=== PATIENT | female | born 1965 | race Caucasian/White ===

== ENCOUNTER 2022-06-14 07:13 | Inpatient (IN) | payer SELFPAY ==
[~2022-06-14] VITALS: Ht 160 cm; Wt 68.0 kg
[2022-06-14] MEDS ORDERED: SODIUM CHLORIDE 0.9% 1,000 ML IV ONE (07:30)
[2022-06-14 08:39] LABS: BASOPHILS % 0.4 % (0.0-2.0); EOSINOPHILS % 1.4 % (0.0-5.0); HEMOGLOBIN. 13.6 g/dL (12.0-16.0); LYMPHOCYTES % 18.6 % (20.0-50.0); MEAN CORPUSCULAR HEMOGLOBIN 28.8 pg (28.0-32.0); MEAN PLATELET VOLUME 8.3 fl (7.4-10.4); MONOCYTES % 6.9 % (2.0-8.0); NEUTROPHILS % 72.7 % (40.0-76.0); PLATELET 72 x1000/uL (130-400); RED BLOOD CELL COUNT 4.71 mill/uL (4.2-5.4); RED CELL DISTRIBUTION WIDTH 16.8 % (11.6-14.6)
[2022-06-14 08:43] LABS: CHLORIDE 112 mEq/L (98-107)
[2022-06-14 08:45] LABS: INR 1.2
[2022-06-14] MEDS ORDERED: ASPIRIN 325MG EC TABLET PO ONE (08:45)
[2022-06-14 08:51] LABS: CREATINE KINASE 266 IU/L (26-192); ETHANOL BLOOD < 10 mg/dL
[2022-06-14] MEDS ORDERED: IOHEXOL-350 100 ML BOTTLE ONE (09:03)
[2022-06-14] MEDS ORDERED: ASPIRIN 325MG EC TABLET PO NR (09:30)
[2022-06-14 10:26] LABS: CLARITY URINE CLOUDY (CLEAR); COLOR URINE YELLOW (YELLOW); KETONES URINE NEGATIVE (NEGATIVE); LEUKOCYTE ESTERASE URINE 1+ (NEGATIVE); NITRITE URINE NEGATIVE (NEGATIVE); OCCULT BLOOD URINE TRACE (NEGATIVE); PH URINE 7.5 (4.5-8.0); PROTEIN URINE 3+ (NEGATIVE)
[2022-06-14 10:36] LABS: *AMPHETAMINES SCREEN URINE NEGATIVE (NEGATIVE); *BARBITURATES SCREEN URINE NEGATIVE (NEGATIVE); *BENZODIAZEPINES SCREEN URINE NEGATIVE (NEGATIVE); *COCAINE SCREEN URINE NEGATIVE (NEGATIVE); CANNABINOID URINE SCREEN NEGATIVE (NEGATIVE); METHADONE URINE SCREEN NEGATIVE (NEGATIVE); OPIATES URINE SCREEN NEGATIVE (NEGATIVE); PHENCYCLIDINE URINE SCREEN NEGATIVE (NEGATIVE)
[2022-06-14] MEDS ORDERED: MAGNESIUM/ALUMINUM HYDROXIDE/SIMETHICONE 30ML UDC PO PRN (12:30)
[2022-06-14] MEDS ORDERED: IPRATROPIUM/ALBUTEROL 0.5-3(2.5)MG/3ML NEB HHN PRN (12:30)
[2022-06-14] MEDS ORDERED: GUAIFENESIN 200MG/10ML SUGAR FREE UDC PO PRN (12:30)
[2022-06-14] MEDS ORDERED: ENOXAPARIN 40MG/0.4ML SYR SUBCUT SCH (12:30)
[2022-06-14] MEDS ORDERED: DOCUSATE SODIUM 100MG CAPSULE PO PRN (12:30)
[2022-06-14] MEDS ORDERED: ONDANSETRON HCL 4MG/2ML INJ IV PRN (12:30)
[2022-06-14] MEDS ORDERED: LABETALOL 5MG/ML SYR 20 MG/4 ML SYRINGE IV NR (12:30)
[2022-06-14] MEDS ORDERED: ACETAMINOPHEN 325MG TABLET PO PRN ×2 (12:30)
[2022-06-14] MEDS ORDERED: DEXTROSE 50% WATER 50ML SYRINGE IV PRN (12:30)
[2022-06-14] MEDS ORDERED: HYDROCODONE/ACETAMINOPHEN 5/325MG TABLET PO PRN (12:30)
[2022-06-14] MEDS ORDERED: CLONIDINE 0.1MG TABLET PO PRN (12:30)
[2022-06-14] MEDS ORDERED: NALOXONE HCL 0.4MG/ML VIAL IV PRN (12:45)
[2022-06-14] MEDS: BLOOD SUGAR DIAGNOSTIC STRIP TEST SCH ×3 (13:00→21:00)
[2022-06-14] MEDS: INSULIN LISPRO 100 UNITS/ML SUBCUT SCH ×3 (13:20→21:00)
[2022-06-14 15:44] LABS: CREATINE KINASE MB FRACTION 2.1 ng/mL (0.5-3.6)
[2022-06-14 21:25] VITALS: BP 153/57
[2022-06-14] MEDS: ATORVASTATIN CALCIUM 40MG TABLET PO SCH (22:56)
[2022-06-14 23:34] LABS: CREATINE KINASE MB FRACTION 1.6 ng/mL (0.5-3.6)
[2022-06-14] MEDS ORDERED: IPRATROPIUM BROMIDE (0.02%) 0.5MG/2.5ML NEB HHN PRN (23:45)
[2022-06-14] MEDS ORDERED: ALBUTEROL (0.083%) 2.5MG/3ML NEB HHN PRN (23:45)
[2022-06-15 06:20] LABS: BASOPHILS % 0.6 % (0.0-2.0); EOSINOPHILS % 3.9 % (0.0-5.0); HEMATOCRIT. 33.4 % (36.0-48.0); HEMOGLOBIN. 11.4 g/dL (12.0-16.0); LYMPHOCYTES % 37.9 % (20.0-50.0); MEAN CORPUSCULAR HEMOGLOBIN 29.4 pg (28.0-32.0); MEAN CORPUSCULAR VOLUME 85.6 fL (81.0-99.0); MEAN PLATELET VOLUME 8.2 fl (7.4-10.4); MONOCYTES % 10.4 % (2.0-8.0); NEUTROPHILS % 47.2 % (40.0-76.0); PLATELET 71 x1000/uL (130-400); RED CELL DISTRIBUTION WIDTH 15.9 % (11.6-14.6)
[2022-06-15 08:00] VITALS: BP 140/47
[2022-06-15] MEDS: PANTOPRAZOLE SODIUM 40 MG/VIAL IV SCH (08:41)
[2022-06-15] MEDS: CLOPIDOGREL 75MG TABLET PO SCH (08:41)
[2022-06-15] MEDS: ASPIRIN 81MG EC TABLET PO SCH (08:41)
[2022-06-15 09:33] LABS: CHLORIDE 115 mEq/L (98-107)
[2022-06-15 09:52] LABS: HDL CHOLESTEROL 63 mg/dL (40-59); LDL CHOLESTEROL 73 mg/dL (5-100); T4 FREE 0.88 ng/dL (0.76-1.46)
[2022-06-15] MEDS ORDERED: PNEUMOCOCCAL 23-VAL P-SAC VAC 0.5 ML IM ONE (11:00)
[2022-06-15] MEDS: BLOOD SUGAR DIAGNOSTIC STRIP TEST SCH ×3 (11:50→20:43)
[2022-06-15] MEDS: INSULIN LISPRO 100 UNITS/ML SUBCUT SCH ×3 (11:56→20:43)
[2022-06-15 12:00] VITALS: BP 160/55
[2022-06-15 16:00] VITALS: BP 134/57
[2022-06-15] MEDS ORDERED: INSULIN LISPRO 100 UNITS/ML SUBCUT NR (16:45)
[2022-06-15 20:00] VITALS: BP 140/48
[2022-06-15] MEDS: ATORVASTATIN CALCIUM 40MG TABLET PO SCH (20:42)
[2022-06-16] VITALS: BP 151/55
[2022-06-16 04:00] VITALS: BP 138/53
[2022-06-16] MEDS: BLOOD SUGAR DIAGNOSTIC STRIP TEST SCH ×3 (05:44→18:17)
[2022-06-16] MEDS: INSULIN LISPRO 100 UNITS/ML SUBCUT SCH ×3 (05:44→18:16)
[2022-06-16 07:00] LABS: BASOPHILS % 0.3 % (0.0-2.0); EOSINOPHILS % 2.1 % (0.0-5.0); HEMATOCRIT. 32.1 % (36.0-48.0); HEMOGLOBIN. 10.8 g/dL (12.0-16.0); LYMPHOCYTES % 25.5 % (20.0-50.0); MEAN CORPUSCULAR HEMOGLOBIN 28.9 pg (28.0-32.0); MEAN CORPUSCULAR VOLUME 85.7 fL (81.0-99.0); MONOCYTES % 9.7 % (2.0-8.0); NEUTROPHILS % 62.4 % (40.0-76.0); PLATELET 61 x1000/uL (130-400); RED BLOOD CELL COUNT 3.75 mill/uL (4.2-5.4)
[2022-06-16 08:00] VITALS: BP 152/56
[2022-06-16] MEDS: PANTOPRAZOLE SODIUM 40 MG/VIAL IV SCH (09:11)
[2022-06-16] MEDS: ASPIRIN 81MG EC TABLET PO SCH (09:12)
[2022-06-16] MEDS: CLOPIDOGREL 75MG TABLET PO SCH (09:12)
[2022-06-16 10:03] LABS: CHLORIDE 114 mEq/L (98-107)
[2022-06-16 12:00] VITALS: BP 164/76
[2022-06-16] MEDS ORDERED: LIP40 PO (14:31)
[2022-06-16] MEDS ORDERED: CLOP-31 PO (14:31)
[2022-06-16] MEDS ORDERED: ASPI-1406 PO (14:31)
[2022-06-16] MEDS ORDERED: METF-414 PO (14:44)
[2022-06-16] MEDS ORDERED: AMLO5TAB88 PO (14:44)
[2022-06-16] MEDS ORDERED: AMLODIPINE 5MG TABLET PO SCH (14:45)
[2022-06-16 16:00] VITALS: BP 147/52
[2022-06-16] MEDS ORDERED: METFORMIN HCL 500MG TABLET PO SCH (17:10)
[2022-06-16 17:51] VITALS: BP 149/52
== END 2022-06-16 19:00 | disposition home or self-care (01) | DRG 47 ==
LOC: ER 07:13 → EDBEDREQSVC 07:30 → EDBEDREQ 11:25 → SUPCPDRO 12:06 → EDBD 22:32 → 7EST 22:32
PROVIDERS: ADMIT Internal Medicine; ATTEND Internal Medicine
PROC: 4A00X4Z Measurement of Central Nervous Electrical Activity, External Approach (ICD-10-PCS; principal; 2022-06-16)
DX: G45.9 Transient cerebral ischemic attack, unspecified (principal); D69.6 Thrombocytopenia, unspecified; E46 Unspecified protein-calorie malnutrition; E83.51 Hypocalcemia; D72.819 Decreased white blood cell count, unspecified; E11.65 Type 2 diabetes mellitus with hyperglycemia; I10 Essential (primary) hypertension; R74.01 Elevation of levels of liver transaminase levels; R79.89 Other specified abnormal findings of blood chemistry; Z79.02 Long term (current) use of antithrombotics/antiplatelets; Z79.82 Long term (current) use of aspirin; Z68.26 Body mass index [BMI] 26.0-26.9, adult
CPT/HCPCS: 36415; 70496; 70498; 70551; 71045; 80053; 80061; 80076; 80305; 80320; 81003; 82550; 82553; 82962; 83036; 84439; 84443; 84484; 85025; 86850; 86900; 87426; 90732; 93005; 93306; 95816; 97162; 99291; C9113; C9803; J1815; J3490; J7030; Q9967; G0480

== ENCOUNTER 2023-01-28 22:39 | Emergency (ER) | payer MEDICAID ==
[~2023-01-28] VITALS: Ht 162.6 cm; Wt 64.0 kg
[~2023-01-28 22:39] MED LIST: AMLO5TAB88 PO; ASPI-1406 PO; CLOP-31 PO; LIP40 PO; METF-414 PO
[2023-01-28 22:40] VITALS: O2SAT 97
[2023-01-28 23:23] LABS: BASOPHILS % 0.2 % (0.0-2.0); EOSINOPHILS % 1.9 % (0.0-5.0); HEMATOCRIT. 40.9 % (36.0-48.0); HEMOGLOBIN. 13.9 g/dL (12.0-16.0); LYMPHOCYTES % 10.8 % (20.0-50.0); MEAN CORPUSCULAR HEMOGLOBIN 29.3 pg (28.0-32.0); MEAN CORPUSCULAR HGB CONC 34.1 g/dL (31.0-37.0); MEAN CORPUSCULAR VOLUME 85.9 fL (81.0-99.0); MEAN PLATELET VOLUME 8.5 fl (7.4-10.4); MONOCYTES % 3.4 % (2.0-8.0); NEUTROPHILS % 83.7 % (40.0-76.0); PLATELET 122 x1000/uL (130-400); RED BLOOD CELL COUNT 4.76 mill/uL (4.2-5.4); RED CELL DISTRIBUTION WIDTH 14.9 % (11.6-14.6); WHITE BLOOD COUNT 8.6 x1000/uL (4.5-11.0)
[2023-01-28 23:32] LABS: CHLORIDE 109 mEq/L (98-107); INDEX HEMOLYSI 1 (1-3); INDEX ICTERIC 2 (1-4); INDEX LIPEMIC 1 (1-3); POTASSIUM 4.6 mEq/L (3.5-5.1); SODIUM 137 mEq/L (136-145)
[2023-01-28 23:38] LABS: ALANINE AMINOTRANSFERASE 34 IU/L (13-61); ALBUMIN 2.5 g/dL (3.4-5.0); ASPARTATE AMINOTRANSFERASE 31 IU/L (15-37); BILIRUBIN TOTAL 2.3 mg/dL (0.1-1.0); CALCIUM 8.4 mg/dL (8.5-10.1); CARBON DIOXIDE 20 mEq/L (21-32); CREATININE 1.4 mg/dL (0.6-1.3); GLUCOSE 265 mg/dL (70-105); PROTEIN TOTAL 7.9 g/dL (6.0-8.3); UREA NITROGEN BLOOD 23 mg/dL (7-21)
[2023-01-29] MEDS ORDERED: SODIUM CHLORIDE 0.9% 1,000 ML IV ONE (01:15)
[2023-01-29] MEDS ORDERED: ONDANSETRON HCL 4MG/2ML INJ IV PRN (05:15)
[2023-01-29] MEDS ORDERED: MAGNESIUM/ALUMINUM HYDROXIDE/SIMETHICONE 30ML UDC PO PRN (05:15)
[2023-01-29] MEDS ORDERED: DOCUSATE SODIUM 100MG CAPSULE PO PRN (05:15)
[2023-01-29] MEDS ORDERED: CLONIDINE 0.1MG TABLET PO PRN (05:15)
[2023-01-29] MEDS ORDERED: IPRATROPIUM/ALBUTEROL 0.5-3(2.5)MG/3ML NEB HHN PRN (05:15)
[2023-01-29] MEDS ORDERED: DEXTROSE 50% WATER 50ML SYRINGE IV PRN (05:15)
[2023-01-29] MEDS ORDERED: ACETAMINOPHEN 325MG TABLET PO PRN ×2 (05:15)
[2023-01-29] MEDS ORDERED: SODIUM CHLORIDE 0.9% 1,000 ML IV SCH (05:15)
[2023-01-29] MEDS ORDERED: GUAIFENESIN 200MG/10ML SUGAR FREE UDC PO PRN (05:15)
[2023-01-29] MEDS ORDERED: AMLODIPINE 10MG TABLET PO SCH (05:45)
[2023-01-29] MEDS ORDERED: LACTATED RINGERS 1,000 ML IV SCH (06:00)
[2023-01-29] MEDS ORDERED: NITR-87 MT (06:04)
[2023-01-29 06:10] LABS: CLARITY URINE TURBID (CLEAR); COLOR URINE YELLOW (YELLOW); GLUCOSE URINE NEGATIVE (NEGATIVE); KETONES URINE NEGATIVE (NEGATIVE); LEUKOCYTE ESTERASE URINE 3+ (NEGATIVE); NITRITE URINE NEGATIVE (NEGATIVE); OCCULT BLOOD URINE 2+ (NEGATIVE); PROTEIN URINE 2+ (NEGATIVE); SPECIFIC GRAVITY URINE 1.016 (1.005-1.030)
[2023-01-29 06:23] LABS: *AMPHETAMINES SCREEN URINE NEGATIVE (NEGATIVE); *BARBITURATES SCREEN URINE NEGATIVE (NEGATIVE); *BENZODIAZEPINES SCREEN URINE NEGATIVE (NEGATIVE); *COCAINE SCREEN URINE NEGATIVE (NEGATIVE); CANNABINOID URINE SCREEN NEGATIVE (NEGATIVE); ECSTASY MDMA SCREEN URINE NEGATIVE (NEGATIVE); OPIATES URINE SCREEN NEGATIVE (NEGATIVE); PHENCYCLIDINE URINE SCREEN NEGATIVE (NEGATIVE)
[2023-01-29 06:23] LABS: BASOPHILS % 0.4 % (0.0-2.0); EOSINOPHILS % 3.1 % (0.0-5.0); HEMATOCRIT. 38.7 % (36.0-48.0); HEMOGLOBIN. 13.4 g/dL (12.0-16.0); LYMPHOCYTES % 20.4 % (20.0-50.0); MEAN CORPUSCULAR HEMOGLOBIN 29.5 pg (28.0-32.0); MEAN CORPUSCULAR HGB CONC 34.6 g/dL (31.0-37.0); MEAN CORPUSCULAR VOLUME 85.3 fL (81.0-99.0); MEAN PLATELET VOLUME 8.6 fl (7.4-10.4); MONOCYTES % 5.5 % (2.0-8.0); NEUTROPHILS % 70.6 % (40.0-76.0); PLATELET 120 x1000/uL (130-400); RED BLOOD CELL COUNT 4.54 mill/uL (4.2-5.4); RED CELL DISTRIBUTION WIDTH 15.1 % (11.6-14.6); WHITE BLOOD COUNT 9.1 x1000/uL (4.5-11.0)
[2023-01-29 06:35] LABS: CHLORIDE 112 mEq/L (98-107); INDEX HEMOLYSI 1 (1-3); INDEX ICTERIC 2 (1-4); INDEX LIPEMIC 1 (1-3); POTASSIUM 4.2 mEq/L (3.5-5.1); SODIUM 139 mEq/L (136-145)
[2023-01-29 06:39] LABS: AMMONIA 106 uMol/L (<32)
[2023-01-29 06:49] LABS: BACTERIA URINE 3+; SQUAMOUS EPITHELIAL CELL URINE 1+ /lpf (RARE/1+)
[2023-01-29 06:51] LABS: ALANINE AMINOTRANSFERASE 29 IU/L (13-61); ALBUMIN 2.1 g/dL (3.4-5.0); ASPARTATE AMINOTRANSFERASE 31 IU/L (15-37); BILIRUBIN DIRECT 0.4 mg/dL (0.0-0.2); BILIRUBIN TOTAL 1.9 mg/dL (0.1-1.0); CALCIUM 7.5 mg/dL (8.5-10.1); CARBON DIOXIDE 19 mEq/L (21-32); CHOLESTEROL 158 mg/dL (<200); CREATININE 1.1 mg/dL (0.6-1.3); ETHANOL BLOOD < 10 mg/dL (<10); GLUCOSE 214 mg/dL (70-105); HDL CHOLESTEROL 85 mg/dL (40-59); LDL CHOLESTEROL 80 mg/dL (5-100); PHOSPHORUS 3.8 mg/dL (2.5-4.9); THYROID STIMULATING HORMONE 0.98 uIU/mL (0.36-3.74); TRIGLYCERIDE 61 mg/dL (0-150); TROPONIN I HIGH SENSITIVITY 11 ng/L (<54); UREA NITROGEN BLOOD 28 mg/dL (7-21)
[2023-01-29] MEDS ORDERED: CEFTRIAXONE 1GM PREMIX 50 ML IV SCH (07:30)
[2023-01-29 07:43] LABS: METHADONE URINE SCREEN INVALID (NEGATIVE)
[2023-01-29 07:54] VITALS: BP 147/56; PULSE 73; RESP 16; TEMP 98.3
[2023-01-29] MEDS ORDERED: INSULIN LISPRO 100 UNITS/ML SUBCUT SCH (08:20)
[2023-01-29] MEDS ORDERED: BLOOD SUGAR DIAGNOSTIC STRIP TEST SCH (09:00)
[2023-01-29] MEDS ORDERED: ENOXAPARIN 40MG/0.4ML SYR SUBCUT SCH (09:00)
[2023-01-29] MEDS ORDERED: ASPIRIN 81MG EC TABLET PO SCH (09:00)
[2023-01-29] MEDS ORDERED: FAMOTIDINE 20MG TABLET PO SCH (21:00)
[2023-01-29] MEDS ORDERED: ATORVASTATIN CALCIUM 40MG TABLET PO SCH (21:00)
[2023-01-29 21:12] LABS: HEPATITIS B SURFACE ANTIGEN NEGATIVE
[2023-01-30 00:22] LABS: HEPATITIS B CORE AB IGM NEGATIVE; HEPATITIS C VIR.AB 0.13 INDEXVAL (0.00-0.80)
[2023-01-30 00:24] LABS: HEPATITIS A AB IGM NEGATIVE (NEGATIVE)
== END 2023-01-29 07:59 | disposition home or self-care (01) ==
LOC: ER 22:39 → CANBEDREQ 01-29 09:39
DX: R53.1 Weakness (principal); F03.90 Unspecified dementia, unspecified severity, without behavioral disturbance, psychotic disturbance, mood disturbance, and anxiety; N39.0 Urinary tract infection, site not specified; E78.00 Pure hypercholesterolemia, unspecified; I10 Essential (primary) hypertension; Z79.899 Other long term (current) drug therapy
CPT/HCPCS: 80053 ×2; 85025 ×2; 36415 ×2; 93005; 99285; 80061; 80305; 81003; 80320; 82140; 82248; 82962; 83036; 84439; 83605; 83735; 84100; 84443; 85044; 87340; 86803; 87086; 87186; 84484; 87077; 86705; 86709; 71045; 70450; 96360; 96361; J7030; Z7610 ×2; G0480

== ENCOUNTER 2023-07-04 03:12 | Inpatient (IN) | payer MEDICAID ==
[~2023-07-04] VITALS: Ht 157.5 cm; Wt 64.9 kg
[~2023-07-04 03:12] MED LIST changes: +NITR-87 MT
[2023-07-04 03:54] LABS: BASOPHILS % 0.7 % (0.0-2.0); EOSINOPHILS % 2.7 % (0.0-5.0); HEMATOCRIT. 33.7 % (36.0-48.0); HEMOGLOBIN. 12.1 g/dL (12.0-16.0); LYMPHOCYTES % 30.2 % (20.0-50.0); MEAN CORPUSCULAR HEMOGLOBIN 32.2 pg (28.0-32.0); MEAN CORPUSCULAR HGB CONC 35.8 g/dL (31.0-37.0); MEAN CORPUSCULAR VOLUME 89.8 fL (81.0-99.0); MEAN PLATELET VOLUME 8.6 fl (7.4-10.4); NEUTROPHILS % 58.4 % (40.0-76.0); PLATELET 76 x1000/uL (130-400); RED BLOOD CELL COUNT 3.75 mill/uL (4.2-5.4); RED CELL DISTRIBUTION WIDTH 15.2 % (11.6-14.6)
[2023-07-04 04:00] LABS: INR 1.1
[2023-07-04 04:35] LABS: AMMONIA 273 uMol/L (<32)
[2023-07-04 04:52] LABS: CARBON DIOXIDE 20 mEq/L (21-32); CHLORIDE 108 mEq/L (98-107); CREATININE 1.2 mg/dL (0.6-1.0); GLUCOSE 97 mg/dL (70-105); SODIUM 134 mEq/L (136-145); UREA NITROGEN BLOOD 15 mg/dL (9-23)
[2023-07-04 04:53] LABS: ALANINE AMINOTRANSFERASE 36 IU/L (10-49); ALBUMIN 2.9 g/dL (3.2-4.8); ASPARTATE AMINOTRANSFERASE 50 IU/L (<34); BILIRUBIN TOTAL 1.1 mg/dL (0.1-1.0); CALCIUM 7.8 mg/dL (8.7-10.4); CREATINE KINASE 316 IU/L (34-145); PROTEIN TOTAL 6.9 g/dL (6.0-8.3); TROPONIN I HIGH SENSITIVITY 5 ng/L (3.0-34)
[2023-07-04 04:54] LABS: THYROID STIMULATING HORMONE 2.12 uIU/mL (0.55-4.78)
[2023-07-04 05:03] LABS: CLARITY URINE CLEAR (CLEAR); COLOR URINE YELLOW (YELLOW); GLUCOSE URINE NEGATIVE (NEGATIVE); KETONES URINE NEGATIVE (NEGATIVE); LEUKOCYTE ESTERASE URINE 2+ (NEGATIVE); NITRITE URINE POSITIVE (NEGATIVE); OCCULT BLOOD URINE NEGATIVE (NEGATIVE); PH URINE 8.5 (4.5-8.0); PROTEIN URINE 1+ (NEGATIVE); SPECIFIC GRAVITY URINE 1.021 (1.005-1.030); UROBILINOGEN URINE 0.2 E.U./dL (0.2-1.0)
[2023-07-04] MEDS: IOHEXOL-350 100 ML BOTTLE ONE (05:03)
[2023-07-04 05:41] LABS: ETHANOL BLOOD < 10 mg/dL (<10)
[2023-07-04] MEDS: SODIUM CHLORIDE 0.9% 500 ML IV ONE (06:29)
[2023-07-04 06:45] LABS: SQUAMOUS EPITHELIAL CELL URINE FEW /lpf (RARE/1+)
[2023-07-04 06:47] LABS: WBC URINE TNTC /hpf (0-2)
[2023-07-04 06:48] LABS: RBC URINE 0-2 /hpf (0-2)
[2023-07-04 06:49] LABS: BACTERIA URINE 3+
[2023-07-04 07:56] LABS: GLUCOSE CSF 66 mg/dL (41-75)
[2023-07-04 08:11] LABS: CSF APPEARANCE CLEAR, COLORLESS (CLEAR)
[2023-07-04 08:22] LABS: CSF WHITE BLOOD CELL 1 /cu mm (0-10)
[2023-07-04] MEDS ORDERED: IPRATROPIUM/ALBUTEROL 0.5-3(2.5)MG/3ML NEB HHN PRN (08:45)
[2023-07-04] MEDS ORDERED: ONDANSETRON HCL 4MG/2ML INJ IV PRN (08:45)
[2023-07-04] MEDS ORDERED: ACETAMINOPHEN 325MG TABLET PO PRN ×2 (08:45)
[2023-07-04] MEDS ORDERED: MAGNESIUM/ALUMINUM HYDROXIDE/SIMETHICONE 30ML UDC PO PRN (08:45)
[2023-07-04] MEDS ORDERED: DOCUSATE SODIUM 100MG CAPSULE PO PRN (08:45)
[2023-07-04] MEDS: VANCOMYCIN 1G PREMIX 200 ML IV NR (08:46)
[2023-07-04 09:29] LABS: BG BASE EXCESS -4.6 mmol/L (-2.0-2.0); BG CARBOXYHEMOGLOBIN 0.3 % (0.5-1.5); BG FRACTION INSPIRED OXYGEN 21; BG HCO3 ACT 17.5 mmol/L (22.0-26.0); BG METHEMOGLOBIN 0.3 % (0.0-1.5); BG OXYHEMOGLOBIN 97.4 % (94.0-97.0); BG PCO2 24.2 mmHg (35.0-45.0); BG PH 7.477 (7.350-7.450); BG PO2 118.7 mmHg (75.0-100.0); BG SAMPLE SITE RIGHT RADIAL; BG TOTAL HEMOGLOBIN 11.6 g/dL (12.0-18.0); BG VENT MODE ROOM AIR
[2023-07-04 09:46] LABS: BILIRUBIN DIRECT 0.6 mg/dL (<=3.0); CHOLESTEROL 154 mg/dL (<200); HDL CHOLESTEROL 57 mg/dL (>65); LDL CHOLESTEROL 76 mg/dL (5-100); PHOSPHORUS 2.9 mg/dL (2.5-4.9); T4 FREE 0.82 ng/dL (0.89-1.76); TRIGLYCERIDE 58 mg/dL (0-150)
[2023-07-04 09:47] LABS: PREALBUMIN < 5.0 mg/dl (10.0-40.0)
[2023-07-04] MEDS ORDERED: VANCOMYCIN 1GM/200ML PMX (BAXTER) IV SCH (10:00)
[2023-07-04] MEDS: PANTOPRAZOLE SODIUM 40 MG/VIAL IV SCH (10:13)
[2023-07-04] MEDS: DEXT 5%/LACTATED RINGERS 1,000 ML IV SCH (10:13)
[2023-07-04] MEDS: ASPIRIN 81MG EC TABLET PO NR (10:30)
[2023-07-04] MEDS ORDERED: PIPERACILLIN/TAZO 3.375G/50ML 50 ML IV SCH (14:00)
[2023-07-04] MEDS: LACTULOSE 20G/30ML UDC PO SCH (14:00)
[2023-07-04] MEDS: LACTULOSE ENEMA 1,000ML BOTTLE PR NR (14:03)
[2023-07-04] MEDS: MAGNESIUM 2 G PREMIX 50 ML IV SCH (15:21)
[2023-07-04] MEDS: CEFTRIAXONE 1GM/50ML 50 ML IV SCH (15:30)
[2023-07-04 18:51] LABS: AMMONIA 70 uMol/L (<32); CREATINE KINASE MB FRACTION 2.2 ng/mL (0.5-3.6)
[2023-07-04] MEDS: PIPERACILLIN/TAZO 3.375G/50ML 50 ML IV NR (19:41)
[2023-07-04 20:00] VITALS: BP 168/60; PULSE 102; RESP 18; TEMP 100.9
[2023-07-04] MEDS ORDERED: VANCOMYCIN 500MG/100ML IV SCH (21:00)
[2023-07-04] MEDS: ATORVASTATIN CALCIUM 20MG TABLET PO SCH (22:46)
[2023-07-05 00:28] LABS: CREATINE KINASE MB FRACTION 2.1 ng/mL (0.5-3.6)
[2023-07-05 00:30] VITALS: BP 180/65; PULSE 81; RESP 18; TEMP 97.9
[2023-07-05] MEDS: CLONIDINE 0.1MG TABLET PO PRN (01:01)
[2023-07-05 04:00] VITALS: BP 147/49; PULSE 73; RESP 18; TEMP 97.5
[2023-07-05 06:51] LABS: BASOPHILS % 0.3 % (0.0-2.0); EOSINOPHILS % 2.3 % (0.0-5.0); HEMOGLOBIN. 10.8 g/dL (12.0-16.0); LYMPHOCYTES % 26.6 % (20.0-50.0); MEAN CORPUSCULAR HEMOGLOBIN 31.8 pg (28.0-32.0); MEAN CORPUSCULAR VOLUME 88.2 fL (81.0-99.0); MEAN PLATELET VOLUME 8.5 fl (7.4-10.4); NEUTROPHILS % 60.8 % (40.0-76.0); PLATELET 64 x1000/uL (130-400); RED BLOOD CELL COUNT 3.41 mill/uL (4.2-5.4); RED CELL DISTRIBUTION WIDTH 14.9 % (11.6-14.6)
[2023-07-05 07:12] LABS: CALCIUM 8.1 mg/dL (8.7-10.4); CARBON DIOXIDE 21 mEq/L (21-32); CHLORIDE 109 mEq/L (98-107); CREATININE 1.3 mg/dL (0.6-1.0); GLUCOSE 228 mg/dL (70-105); PHOSPHORUS 3.3 mg/dL (2.5-4.9); POTASSIUM 3.8 mEq/L (3.5-5.1); SODIUM 137 mEq/L (136-145); UREA NITROGEN BLOOD 11 mg/dL (9-23)
[2023-07-05 07:47] LABS: AMMONIA 125 uMol/L (<32)
[2023-07-05 08:00] VITALS: BP 138/88; PULSE 64; RESP 22; TEMP 98
[2023-07-05] MEDS: CLOPIDOGREL 75MG TABLET PO SCH (08:57)
[2023-07-05] MEDS: CEFTRIAXONE 1GM/50ML 50 ML IV SCH (08:57)
[2023-07-05] MEDS ORDERED: DEXTROSE 50% WATER 50ML SYRINGE IV PRN (09:30)
[2023-07-05] MEDS ORDERED: CALC-3 (10:45)
[2023-07-05] MEDS ORDERED: LACT10SO81 MT (10:45)
[2023-07-05] MEDS ORDERED: OMEP40CA20 MT (10:45)
[2023-07-05] MEDS: ASPIRIN 81MG TABLET PO SCH (11:52)
[2023-07-05] MEDS: AMLODIPINE 5MG TABLET PO SCH (11:52)
[2023-07-05] MEDS: BLOOD SUGAR DIAGNOSTIC STRIP TEST SCH (11:56)
[2023-07-05 12:00] VITALS: BP 91/56; PULSE 78; RESP 16; TEMP 98
[2023-07-05] MEDS: INSULIN LISPRO 100 UNITS/ML SUBCUT SCH (13:18)
[2023-07-05 16:00] VITALS: BP 133/55; PULSE 71; RESP 20; TEMP 98.1
[2023-07-05 20:00] VITALS: BP 127/46; PULSE 71; RESP 18; TEMP 98.1
[2023-07-05] MEDS: INSULIN GLARGINE 100 UNITS/ML SUBCUT SCH (22:53)
[2023-07-06] VITALS: BP 131/49; PULSE 74; RESP 18; TEMP 99
[2023-07-06 04:00] VITALS: BP 125/48; PULSE 78; RESP 18; TEMP 98.4
[2023-07-06 07:09] LABS: BASOPHILS % 0.6 % (0.0-2.0); EOSINOPHILS % 5.1 % (0.0-5.0); HEMATOCRIT. 26.7 % (36.0-48.0); HEMOGLOBIN. 9.4 g/dL (12.0-16.0); LYMPHOCYTES % 36.1 % (20.0-50.0); MEAN CORPUSCULAR HEMOGLOBIN 31.4 pg (28.0-32.0); MEAN CORPUSCULAR HGB CONC 35.3 g/dL (31.0-37.0); MEAN CORPUSCULAR VOLUME 88.9 fL (81.0-99.0); MEAN PLATELET VOLUME 8.9 fl (7.4-10.4); MONOCYTES % 10.2 % (2.0-8.0); PLATELET 56 x1000/uL (130-400); RED CELL DISTRIBUTION WIDTH 14.6 % (11.6-14.6); WHITE BLOOD COUNT 2.4 x1000/uL (4.5-11.0)
[2023-07-06 07:15] LABS: ALANINE AMINOTRANSFERASE 27 IU/L (10-49); ALBUMIN 2.3 g/dL (3.2-4.8); ASPARTATE AMINOTRANSFERASE 32 IU/L (<34); BILIRUBIN TOTAL 1.1 mg/dL (0.1-1.0); CALCIUM 7.7 mg/dL (8.7-10.4); CARBON DIOXIDE 18 mEq/L (21-32); CHLORIDE 108 mEq/L (98-107); CREATININE 1.3 mg/dL (0.6-1.0); GLUCOSE 202 mg/dL (70-105); PHOSPHORUS 3.7 mg/dL (2.5-4.9); PROTEIN TOTAL 5.4 g/dL (6.0-8.3); SODIUM 135 mEq/L (136-145); UREA NITROGEN BLOOD 11 mg/dL (9-23)
[2023-07-06 08:00] VITALS: BP 134/59; PULSE 70; RESP 16; TEMP 97
[2023-07-06 12:00] VITALS: BP 118/70; PULSE 80; RESP 19; TEMP 96.6
[2023-07-06] MEDS: MAGNESIUM 2 G PREMIX 50 ML IV NR (13:00)
[2023-07-06 16:00] VITALS: BP 124/60; PULSE 76; RESP 18; TEMP 97.3
[2023-07-06 16:52] LABS: AMMONIA 77 uMol/L (<32)
[2023-07-06 20:00] VITALS: BP 154/46; PULSE 68; RESP 20; TEMP 97.9
[2023-07-06] MEDS: PANTOPRAZOLE SODIUM 40 MG/VIAL IV SCH (21:34)
[2023-07-06] MEDS: RIFAXIMIN 550 MG TABLET PO SCH (21:34)
[2023-07-06] MEDS: LACTULOSE 20G/30ML UDC PO SCH (21:34)
[2023-07-06] MEDS ORDERED: LACTULOSE 20G/30ML UDC PO SCH (22:00)
[2023-07-07] VITALS: BP 121/48; PULSE 76; RESP 20; TEMP 98.4
[2023-07-07 03:15] LABS: BASOPHILS % 0.4 % (0.0-2.0); EOSINOPHILS % 3.5 % (0.0-5.0); HEMATOCRIT. 28.1 % (36.0-48.0); HEMOGLOBIN. 9.7 g/dL (12.0-16.0); LYMPHOCYTES % 37.1 % (20.0-50.0); MEAN CORPUSCULAR HEMOGLOBIN 30.9 pg (28.0-32.0); MEAN CORPUSCULAR HGB CONC 34.4 g/dL (31.0-37.0); MEAN CORPUSCULAR VOLUME 89.6 fL (81.0-99.0); MEAN PLATELET VOLUME 8.7 fl (7.4-10.4); MONOCYTES % 9.9 % (2.0-8.0); NEUTROPHILS % 49.1 % (40.0-76.0); PLATELET 60 x1000/uL (130-400); RED BLOOD CELL COUNT 3.13 mill/uL (4.2-5.4); RED CELL DISTRIBUTION WIDTH 14.8 % (11.6-14.6); WHITE BLOOD COUNT 2.5 x1000/uL (4.5-11.0)
[2023-07-07 03:21] LABS: INR 1.2; PROTHROMBIN TIME 13.3 sec (9.6-11.0)
[2023-07-07 03:22] LABS: AMMONIA 105 uMol/L (<32)
[2023-07-07 03:23] LABS: CALCIUM 7.6 mg/dL (8.7-10.4); CARBON DIOXIDE 21 mEq/L (21-32); CHLORIDE 108 mEq/L (98-107); CREATININE 1.3 mg/dL (0.6-1.0); GLUCOSE 190 mg/dL (70-105); IRON 71 ug/dL (50-170); PHOSPHORUS 4.4 mg/dL (2.5-4.9); POTASSIUM 4.1 mEq/L (3.5-5.1); SODIUM 136 mEq/L (136-145); TOTAL IRON BINDING CAPACITY 241 ug/dl (250-425); UREA NITROGEN BLOOD 12 mg/dL (9-23)
[2023-07-07 04:00] VITALS: BP 126/46; PULSE 69; RESP 18; TEMP 97.9
[2023-07-07 05:04] LABS: HEPATITIS A AB IGM NEGATIVE (Negative); HEPATITIS B CORE AB IGM NEGATIVE (Negative); HEPATITIS B SURFACE ANTIGEN NEGATIVE (Negative)
[2023-07-07 05:06] LABS: FERRITIN 57 ng/mL (10-291); FOLIC ACID (FOLATE) SERUM 13.75 ng/mL (>5.38)
[2023-07-07 05:09] LABS: HEPATITIS C AB Negative (Negative)
[2023-07-07 06:58] LABS: VITAMIN B12 SERUM > 2000 pg/mL (211-911)
[2023-07-07 08:00] VITALS: BP 132/70; PULSE 67; RESP 20; TEMP 97.7
[2023-07-07] MEDS: LEVOFLOXACIN 750MG PREMIX 150 ML IV SCH (10:00)
[2023-07-07 12:00] VITALS: BP 139/59; PULSE 61; RESP 18; TEMP 98.2
[2023-07-07] MEDS ORDERED: PROPOFOL 200MG/20ML VIAL IV ONE (12:42)
[2023-07-07] MEDS ORDERED: FENTANYL CITRATE/PF 50MCG/ML 2ML VIAL IV PRN (13:00)
[2023-07-07] MEDS ORDERED: ONDANSETRON HCL 4MG/2ML INJ IV PRN (13:00)
[2023-07-07 16:00] VITALS: BP 136/58; PULSE 66; RESP 18; TEMP 98.1
[2023-07-07 20:00] VITALS: BP 124/46; PULSE 68; RESP 20; TEMP 98
[2023-07-08] VITALS: BP 133/50; PULSE 69; RESP 18; TEMP 98.1
[2023-07-08 04:00] VITALS: BP 130/46; PULSE 69; RESP 18; TEMP 98
[2023-07-08 05:58] LABS: AMMONIA 62 uMol/L (<32)
[2023-07-08 07:10] LABS: BASOPHILS % 0.6 % (0.0-2.0); EOSINOPHILS % 3.4 % (0.0-5.0); HEMOGLOBIN. 10.3 g/dL (12.0-16.0); LYMPHOCYTES % 31.5 % (20.0-50.0); MEAN CORPUSCULAR HEMOGLOBIN 31.8 pg (28.0-32.0); MEAN CORPUSCULAR HGB CONC 35.5 g/dL (31.0-37.0); MEAN CORPUSCULAR VOLUME 89.6 fL (81.0-99.0); MEAN PLATELET VOLUME 9.5 fl (7.4-10.4); MONOCYTES % 9.7 % (2.0-8.0); NEUTROPHILS % 54.8 % (40.0-76.0); PLATELET 65 x1000/uL (130-400); RED BLOOD CELL COUNT 3.24 mill/uL (4.2-5.4); RED CELL DISTRIBUTION WIDTH 14.7 % (11.6-14.6); WHITE BLOOD COUNT 2.4 x1000/uL (4.5-11.0)
[2023-07-08 07:30] LABS: ALANINE AMINOTRANSFERASE 27 IU/L (10-49); ALBUMIN 2.4 g/dL (3.2-4.8); ASPARTATE AMINOTRANSFERASE 34 IU/L (<34); CARBON DIOXIDE 20 mEq/L (21-32); CHLORIDE 108 mEq/L (98-107); CREATININE 1.3 mg/dL (0.6-1.0); GLUCOSE 195 mg/dL (70-105); PHOSPHORUS 3.1 mg/dL (2.5-4.9); POTASSIUM 4.5 mEq/L (3.5-5.1); SODIUM 134 mEq/L (136-145); UREA NITROGEN BLOOD 15 mg/dL (9-23)
[2023-07-08 08:00] VITALS: BP 133/45; PULSE 68; RESP 18; TEMP 98.6
[2023-07-08] MEDS ORDERED: ASPI-1406 PO (09:44)
[2023-07-08] MEDS ORDERED: CLOP-31 PO (09:44)
[2023-07-08] MEDS ORDERED: AMLO5TAB88 PO (09:45)
[2023-07-08] MEDS ORDERED: LEVO750T68 MT (09:45)
[2023-07-08] MEDS ORDERED: METF-415 MT (09:45)
[2023-07-08] MEDS ORDERED: ATOR20TA PO (09:45)
[2023-07-08] MEDS ORDERED: LACT10SO81 MT (09:45)
[2023-07-08] MEDS ORDERED: RIFA550T MT (09:45)
[2023-07-08 10:59] VITALS: BP 130/72; PULSE 70; TEMP 98; O2SAT 100
[2023-07-08] MEDS: MAGNESIUM 2 G PREMIX 50 ML IV NR (11:14)
== END 2023-07-08 11:45 | disposition home or self-care (01) ==
LOC: ER 03:12 → EDBEDREQTM 07:31 → EDBEDREQ 07:31 → 7WST 20:02
PROVIDERS: ADMIT Internal Medicine; ATTEND Internal Medicine
PROC: 0DJ08ZZ Inspection of Upper Intestinal Tract, Via Natural or Artificial Opening Endoscopic (ICD-10-PCS; principal; 2023-07-07)
DX: K74.60 Unspecified cirrhosis of liver (principal); G93.41 Metabolic encephalopathy; D61.818 Other pancytopenia; E46 Unspecified protein-calorie malnutrition; N39.0 Urinary tract infection, site not specified; E87.1 Hypo-osmolality and hyponatremia; I85.10 Secondary esophageal varices without bleeding; B96.20 Unspecified Escherichia coli [E. coli] as the cause of diseases classified elsewhere; E11.65 Type 2 diabetes mellitus with hyperglycemia; K76.82 Hepatic encephalopathy; E78.00 Pure hypercholesterolemia, unspecified; F03.90 Unspecified dementia, unspecified severity, without behavioral disturbance, psychotic disturbance, mood disturbance, and anxiety; I10 Essential (primary) hypertension; E83.42 Hypomagnesemia; K75.81 Nonalcoholic steatohepatitis (NASH); Z79.4 Long term (current) use of insulin; Z79.82 Long term (current) use of aspirin; Z79.02 Long term (current) use of antithrombotics/antiplatelets; Z79.899 Other long term (current) drug therapy; Z86.73 Personal history of transient ischemic attack (TIA), and cerebral infarction without residual deficits; Z68.26 Body mass index [BMI] 26.0-26.9, adult
CPT/HCPCS: 36415; 36600; 70496; 70498; 70551; 71045; 76700; 80048; 80053; 80061; 80320; 81003; 82140; 82248; 82375; 82542; 82550; 82553; 82607; 82728; 82746; 82805; 82945; 82962; 83036; 83540; 83550; 83605; 83735; 83880; 84100; 84134; 84157; 84439; 84443; 84484; 85025; 85044; 85651; 86705; 86709; 86850; 86900; 87070; 87077; 87186; 87340; 93005; 93970; 97162; 97166; 97530; 97535; 99291; C9113; J0696; J1815; J1956; J2543; J2704; J3370; J3475; J7121; Q9967; G0480

== ENCOUNTER 2023-11-20 14:17 | Emergency (ER) | payer MEDICAID ==
[~2023-11-20] VITALS: Ht 157.5 cm; Wt 65.0 kg
[~2023-11-20 14:17] MED LIST changes: +ATOR20TA PO; +CALC-3; +LACT10SO81 MT; +LEVO750T68 MT; -LIP40 PO; -METF-414 PO; +METF-415 MT; -NITR-87 MT; +OMEP40CA20 MT; +RIFA550T MT
[2023-11-20 14:23] VITALS: BP 158/50; PULSE 64; RESP 20; TEMP 98.2; O2SAT 99
[2023-11-20] MEDS ORDERED: MAGNESIUM/ALUMINUM HYDROXIDE/SIMETHICONE 30ML UDC PO STA (15:02)
[2023-11-20] MEDS ORDERED: CYCL10TA21 MT (15:06)
== END 2023-11-20 15:45 | disposition home or self-care (01) ==
LOC: ER 14:17
DX: M54.50 Low back pain, unspecified (principal); I11.0 Hypertensive heart disease with heart failure; I50.9 Heart failure, unspecified; E11.9 Type 2 diabetes mellitus without complications; Z79.899 Other long term (current) drug therapy
CPT/HCPCS: 99283